=== PATIENT | female | born 2005 | race Hispanic/Latino ===

== ENCOUNTER 2024-07-18 14:42 | Emergency (ER) | payer SELFPAY ==
--- NOTE | 2024-07-18 16:02 | RAD REPORT ---
EXAMINATION: ONE VIEW CHEST XR CLINICAL INDICATION: COUGH TECHNIQUE: Frontal chest projection is submitted. Examination is limited by patient positioning and t echnique. COMPARISON: No prior exam. FINDINGS: Nonspecific peribronchial thickening without focal consolidation could represent a viral or inflammat ory process. The heart is normal in size. No displaced fractures identified. IMPRESSION: Interstitial pattern bilaterally could be related to viral infection or reactive airway disease.
[2024-07-18 16:03] LABS: SARS-CoV-2 Antigen CONTROL BLUE LINE VIS/BG OK; SARS-CoV-2 Antigen Rapid Res Negative (Negative)
--- NOTE | 2024-07-18 16:09 | ER ---
Nurse's Notes [facility] Name: Azalea Hyde Age: 18 yrs Sex: Female : 2005 Arrival Date: 07/18/2024 Time: 14:42 Bed 9 Private MD: Diagnosis: Viral infection, unspecified Presentation: 07/18 15:20 Chief complaint: Patient states: she has been having cough, congestion, feeling hot and ap3 cold and body aches with a headache since yesterday. Coronavirus screen: At this time, the client does not indicate any symptoms associated with coronavirus-19. Ebola Screen: No symptoms or risks identified at this time. Initial Sepsis Screen: Does the patient meet any 2 criteria? No. Patient's initial sepsis screen is negative. Does the patient have a suspected source of infection? No. Patient's initial sepsis screen is negative. Risk Assessment: Do you want to hurt yourself or someone else? Patient reports no desire to harm self or others. Onset of symptoms was July 17, 2024. 15:20 Method Of Arrival: Ambulatory ap3 15:20 Acuity: JONLE 4 ap3 Triage Assessment: 15:22 General: Appears ill, Behavior is calm, cooperative, appropriate for age. Pain: ap3 Complains of pain in generalized body aches. EENT: Reports nasal congestion. Neuro: Level of Consciousness is awake, alert, obeys commands, Oriented to person, place, time, situation, Appropriate for age. Cardiovascular: Patient's skin is warm and dry. Respiratory: Reports cough that is Airway is patent Respiratory effort is even, unlabored, Respiratory pattern is regular, symmetrical. 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 Flu vaccine is not up to date. - Infectious Disease History:: Denies. - Social history:: Smoking status: Patient denies any tobacco usage or history of. Screenin:23 [facility] ED Fall Risk Assessment (Adult) History of falling in the last 3 months, ap3 including since admission No falls in past 3 months (0 pts) Confusion or Disorientation No (0 pts) Intoxicated or Sedated No (0 pts) Impaired Gait No (0 pts) Mobility Assist Device Used No (0 pt) Altered Elimination No (0 pt) Score/Fall Risk Level 0 - 2 = Low Risk Oriented to surroundings, Maintained a safe environment, Educated pt \T\ family on fall prevention, incl call for assistance when getting out of bed, Assessed \T\ reinforced patient's understanding of fall precautions, Hourly rounding (assess needs \T\ fall precautionary measures) done, Used ambulatory aids as needed (educated on \T\ assisted with), Used gait belt as appropriate. Abuse screen: Denies threats or abuse. Nutritional screening: No deficits noted. Tuberculosis screening: No symptoms or risk factors identified. Assessment: 16:30 Reassessment: Patient appears in no apparent distress at this time. Patient and/or db family updated on plan of care and expected duration. Pain level reassessed. Patient is alert, oriented x 3, equal unlabored respirations, skin warm/dry/pink. General: Appears in no apparent distress. comfortable, Behavior is calm, cooperative. Neuro: Level of Consciousness is awake, alert, obeys commands, Oriented to person, place, time, situation. Respiratory: Airway is patent Respiratory effort is even, unlabored, Respiratory pattern is regular, symmetrical. Vital Signs: 15:20 BP 122 / 76; Pulse 69; Resp 17; Temp 98(O); Pulse Ox 100% ; Weight 108.86 kg; Height 5 ap3 ft. 0 in. ; 16:30 BP 120 / 76; Pulse 68; Resp 16; Pulse Ox 99% on R/A; db 15:20 Body Mass Index 46.87 (108.86 kg, 152.4 cm) - Percentile 99.0 % ap3 ED Course: 14:45 Patient arrived in ED. im 14:47 Sylvester Tenorio MD is Attending Physician. ec2 15:22 Triage completed. ap3 15:23 Arm band placed on right wrist. ap3 15:57 CXR XRAY In Process Unspecified. EDMS 16:22 Pura Garcia, OSORIO is Primary Nurse. db 16:45 Patient has correct armband on for positive identification. Bed in low position. Call db light in reach. Side rails up X 1. Provided Education on: DISCHARGE AND FOLLOWUP. 16:45 No provider procedures requiring assistance completed. Patient did not have IV access db during this emergency room visit. Administered Medications: 16:10 Drug: Ketorolac IM 30 mg IM once Route: IM; Site: right deltoid; db 16:45 Follow up: Response: No adverse reaction db 16:10 Drug: Tessalon Perle PO 200 mg PO once Route: PO; db 16:45 Follow up: Response: No adverse reaction db Medication: 16:30 VIS not applicable for this client. db Outcome: 16:08 Discharge ordered by . ec2 16:45 Discharged to home ambulatory, with family, db 16:45 Condition: stable 16:45 Discharge instructions given to patient, Instructed on discharge instructions, follow up and referral plans. Prescriptions given X 2, 17:21 Patient left the ED. db Signatures: Dispatcher [employer] Manuela Huston RN RN ap3 Pura Garcia RN RN Digna Scanlon Edwin, MD MD ec2
--- NOTE | 2024-07-18 16:09 | EDPHYS ---
Physician Documentation [facility] Name: Azalea Hyde Age: 18 yrs Sex: Female : 2005 Arrival Date: 07/18/2024 Time: 14:42 Bed 9 Private MD: ED Physician Sylvester Tenorio HPI: 07/18 15:29 This 18 yrs old Female presents to ER via Ambulatory with complaints of Flu ec2 Symptoms. 15:29 Patient arrives today for evaluation of upper respiratory symptoms. Onset of several ec2 days. Reports sick contact at home with similar symptoms. No vomiting or diarrhea. Reports some myalgias as well as headache and congestion.. 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 Flu vaccine is not up to date. - Infectious Disease History:: Denies. - Social history:: Smoking status: Patient denies any tobacco usage or history of. ROS: 15:29 Constitutional: as per hpi ec2 Exam: 15:29 Constitutional: GEN: NAD Head: atraumatic Eyes: EOMI Ears: External ears are ec2 normal. CV: regular rate LUNGS: no respiratory distress, no wheezes or rales or rhonchi ABD: non-distended SKIN: no evidence of rashes MSK: no evidence of trauma Vital Signs: 15:20 BP 122 / 76; Pulse 69; Resp 17; Temp 98(O); Pulse Ox 100% ; Weight 108.86 kg; Height 5 ap3 ft. 0 in. ; 16:30 BP 120 / 76; Pulse 68; Resp 16; Pulse Ox 99% on R/A; db 15:20 Body Mass Index 46.87 (108.86 kg, 152.4 cm) - Percentile 99.0 % ap3 MDM: 15:09 Medical Screening Exam initiated ec2 15:29 Data reviewed: vital signs, nurses notes. ED course: Patient arrives today for upper ec2 respiratory symptoms. Examination is unrevealing. Will obtain viral swabs, chest x-ray. Suspect viral infection. Will treat for myalgias as well as headache.. 07/18 15:04 Order name: Influenza Screen (a \T\ B); Complete Time: 16:08 ec2 07/18 15:04 Order name: SARS RAPID; Complete Time: 16:08 ec2 07/18 15:23 Order name: CXR XRAY; Complete Time: 16:08 ec2 Administered Medications: 16:10 Drug: Ketorolac IM 30 mg IM once Route: IM; Site: right deltoid; db 16:45 Follow up: Response: No adverse reaction db 16:10 Drug: Tessalon Perle PO 200 mg PO once Route: PO; db 16:45 Follow up: Response: No adverse reaction db Disposition Summary: 07/18/24 16:08 Discharge Ordered Notes: Location: Home ec2 Condition: Stable ec2 Diagnosis - Viral infection, unspecified ec2 Followup: ec2 - With: Private Physician - When: - Reason: Re-evaluation by your physician Discharge Instructions: - Discharge Summary Sheet ec2 - Viral Illness, Adult ec2 Forms: - Work release form ec2 - Medication Reconciliation Form ec2 - Antibiotic Education ec2 - Prescription Opioid Use ec2 - Patient Portal Instructions ec2 - Leadership Thank You Letter ec2 Prescriptions: - Zofran 4 mg Oral Tablet - take 1 tablet ORAL route every 12 hours As needed; 20 tablet; Refills: 0, ec2 Product Selection Permitted - Tessalon Perles 100 mg Oral Capsule - take 1 capsule ORAL route every 8 hours As needed; 15 capsule; Refills: 0, ec2 Product Selection Permitted Signatures: Dispatcher [employer] Manuela Huston RN RN ap3 Pura Garcia RN RN Sylvester Christian MD MD ec2
[2024-07-18] MEDS ORDERED: BENZONATATE 100 MG CAP PO ONE (16:16)
[2024-07-18] MEDS ORDERED: KETOROLAC 30 MG/ML INJ ONE (16:16)
[2024-07-18 21:28] VITALS: TEMP 98
[2024-07-18 21:29] VITALS: BP 120/76; O2SAT 99
== END 2024-07-18 17:21 | disposition home or self-care (01) ==
LOC: ER 14:42
DX: B34.9 Viral infection, unspecified (principal); Z11.52 Encounter for screening for COVID-19
CPT/HCPCS: 36415; 71045; 87804; 87811; 96372; 99284